=== PATIENT | male | born 1965 | race Caucasian/White ===

== ENCOUNTER → 2017-03-20 | Day surgery (SDC) | payer OTHER ==
[~2017-03-20] MED LIST: GLYCOPYRROLATE INJ 0.2 MG/ML 2 ML VIAL As Ordered; KETOROLAC 30 MG/ML VIAL (J1885) IV; KETOROLAC 60 MG/2 ML VIAL (J1885) As Ordered; LIDOCAINE 2% INJ 100 MG/5 ML SDV (FOR ANES.) As Ordered; LR 1,000 ML IV; METOCLOPRAMIDE INJ 10MG/2ML VIAL (J2765) As Ordered; MIDAZOLAM INJ 2 MG/2 ML VIAL (J2250) As Ordered; MORPHINE 4 MG/ML 1ML VIAL (J2270) IV; NEOSTIGMINE 10 MG/10 ML VIAL (J2710) As Ordered; NORCO, ANEXSIA 5/325MG TABLET (HYDROcodone/ACETAMINOPHEN) PO; ONDANSETRON 4MG/2ML VIAL (J2405) As Ordered; ONDANSETRON 4MG/2ML VIAL (J2405) IV; PROPOFOL 200 MG/20 ML VIAL As Ordered; ROCURONIUM BROMIDE 50 MG/5 ML VIAL As Ordered; dexameTHASONE 4 MG/ML 1ML VIAL (J1100) As Ordered; fentaNYL 100 MCG/2 ML INJECTION (J3010) As Ordered; fentaNYL 250 MCG/5 ML INJECTION (J3010) As Ordered
[2017-03-20] MEDS: LR 1,000 ML IV (11:40)
[2017-03-20] MEDS: SCOPOLAMINE 1MG TRANSDERMAL PATCH TOP (11:40)
[2017-03-20] MEDS: CEFAZOLIN SOD 1 GM in APPROPRIATE DILUENT 1 EA IV (12:27)
[2017-03-20] MEDS: BUPIVACAINE HCL 0.25% 10 ML VIAL As Ordered (14:27)
[2017-03-20] MEDS: LIDOCAINE W/EPINEPHRINE 1% 20ML VIAL As Ordered (14:27)
== END | disposition home or self-care (01) ==
LOC: M SDC 10:19
DX: K40.90 Unilateral inguinal hernia, without obstruction or gangrene, not specified as recurrent (principal); K42.9 Umbilical hernia without obstruction or gangrene; R06.83 Snoring; N20.0 Calculus of kidney
CPT/HCPCS: 49585

== ENCOUNTER → 2017-11-22 | Outpatient (CLI) | payer OTHER | LOC: M WUC 14:12 | DX: M79.641 Pain in right hand (principal) | CPT/HCPCS: 73130 ==

== ENCOUNTER → 2019-10-24 | Outpatient (CLI) | payer OTHER ==
[~2019-10-24] MED LIST changes: +ACET500T15 PO; +ALEV220T26 PO; -GLYCOPYRROLATE INJ 0.2 MG/ML 2 ML VIAL As Ordered; +IBUP200C25 PO; -KETOROLAC 30 MG/ML VIAL (J1885) IV; -KETOROLAC 60 MG/2 ML VIAL (J1885) As Ordered; +L-LY500C2 PO; -LIDOCAINE 2% INJ 100 MG/5 ML SDV (FOR ANES.) As Ordered; -LR 1,000 ML IV; -METOCLOPRAMIDE INJ 10MG/2ML VIAL (J2765) As Ordered; -MIDAZOLAM INJ 2 MG/2 ML VIAL (J2250) As Ordered; -MORPHINE 4 MG/ML 1ML VIAL (J2270) IV; +MULT1TAB10 PO; -NEOSTIGMINE 10 MG/10 ML VIAL (J2710) As Ordered; -NORCO, ANEXSIA 5/325MG TABLET (HYDROcodone/ACETAMINOPHEN) PO; -ONDANSETRON 4MG/2ML VIAL (J2405) As Ordered; -ONDANSETRON 4MG/2ML VIAL (J2405) IV; -PROPOFOL 200 MG/20 ML VIAL As Ordered; -ROCURONIUM BROMIDE 50 MG/5 ML VIAL As Ordered; +VITA-243 PO; +VITA10005 PO; -dexameTHASONE 4 MG/ML 1ML VIAL (J1100) As Ordered; -fentaNYL 100 MCG/2 ML INJECTION (J3010) As Ordered; -fentaNYL 250 MCG/5 ML INJECTION (J3010) As Ordered
== END ==
LOC: M LABSMTC 10:14
PROVIDERS: ATTEND Orthopaedic Surgery
DX: Z20.828 Contact with and (suspected) exposure to other viral communicable diseases (principal)

== ENCOUNTER → 2023-10-06 | Outpatient (CLI) | payer OTHER | LOC: M WUC 09:09 | PROVIDERS: ATTEND Physician Assistant | DX: M54.50 Low back pain, unspecified (principal) ==